=== PATIENT | male | born 1940 | race Caucasian/White ===

== ENCOUNTER 2022-06-23 11:37 | Emergency (ER) | payer MEDICARE, MEDICAID ==
[~2022-06-23] VITALS: Ht 182.9 cm; Wt 81.8 kg
[2022-06-23] MEDS ORDERED: AMIODARONE HCL (50 MG/ ML) 3 ML VIAL IV ONE ×2 (11:38)
[2022-06-23] MEDS ORDERED: MAGNESIUM SULF 50% 40 MEQ/10 ML VL IV ONE ×2 (11:38)
[2022-06-23] MEDS ORDERED: EPINEPHrine HCL 1 MG/10 ML SYRG IV ONE (11:38)
[2022-06-23] MEDS ORDERED: SODIUM BICARBONATE 8.4% INJ 50ML SYRINGE IV ONE ×2 (11:38)
[2022-06-23] MEDS ORDERED: ATROPINE SULF 1 MG/10ml SYR IM ONE (11:38)
[2022-06-23] MEDS ORDERED: SODIUM CHLORIDE 0.9% 500 ML IVB ONE (11:45)
[2022-06-23 12:25] LABS: Red Cell Distribution Width 13.5 % (11.8-14.3)
[2022-06-23 12:26] LABS: Hematocrit 45.5 % (41.0-53.0); Mean Corpuscular Hemoglobin 34.2 pg (28.0-32.0); Mean Corpuscular Hgb Conc. 33.1 g/dL (32.0-36.0); Mean Corpuscular Volume 103.3 fL (80.0-100.0)
[2022-06-23 12:31] LABS: White Blood Cell 30.1 10^3/uL (4.4-10.8)
[2022-06-23 12:32] LABS: Basophils % (manual) 0 (0.0-2.0); Blast Cells 0; Eosinophils % (manual) 0 (0-7); Myelocytes % 0; Promyelocytes % 0; Reactive Lymphocytes 0
[2022-06-23] MEDS ORDERED: SODIUM CHLORIDE 0.9% 2,450 ML IV ONE (12:45)
[2022-06-23] MEDS ORDERED: levoFLOXacin 500MG 100 ML IV ONE (12:45)
[2022-06-23 12:46] LABS: Lactic Acid w/Reflex 5.7 mmol/L (0.4-2.0)
[2022-06-23 12:47] LABS: Albumin 1.4 g/dL (3.4-5.0); Calcium 7.8 mg/dL (8.5-10.1); Magnesium 3.4 mg/dL (1.6-2.6)
[2022-06-23] MEDS ORDERED: DEXTROSE 50% SYRINGE 50 ML IV ONE ×2 (12:47→22:50)
[2022-06-23 12:48] LABS: INR 1.08 (0.9-1.15); Partial Thromboplastin Time 33.3 sec (24.6-33.4)
[2022-06-23 12:52] LABS: BUN/Creatinine Ratio 31.1; Bilirubin, Total 0.5 mg/dL (0.2-1.0); Total Protein 4.7 g/dL (6.4-8.2)
[2022-06-23] MEDS: PIPERACILLIN-TAZOB 3.375GM 100 ML IV ONE ×2 (12:55→15:48)
[2022-06-23 12:57] LABS: Potassium 2.9 mmol/L (3.5-5.1)
[2022-06-23] MEDS ORDERED: NOREPINEPHRINE 8 MG/250ML KIT 250 ML IV SCH (13:30)
[2022-06-23] MEDS ORDERED: NOREPINEPHRINE 8 MG/250ML KIT 250 ML IV ONE (13:36)
[2022-06-23] MEDS ORDERED: ONDANSETRON HCL 4 MG/2 ML VIAL IV PRN (14:00)
[2022-06-23] MEDS ORDERED: POTASSIUM CHL 20MEQ/100ML 100 ML IV ONE (14:00)
[2022-06-23] MEDS ORDERED: NITROGLYCERIN 0.4 MG SL TAB SL PRN (14:00)
[2022-06-23] MEDS ORDERED: HEPARIN SODIUM (PORCINE) 5000 UNITS/ML 1ML VIAL IV ONE (14:00)
[2022-06-23] MEDS ORDERED: MORPHINE SULFATE INJ 2 MG/ml SYRG IV PRN (14:00)
[2022-06-23 14:19] LABS: Band Neutrophils % (manual) 39; Lymphocytes % (manual) 8 (10.0-50.0); Metamyelocytes % 2; Monocytes % (manual) 7 (0-12)
[2022-06-23 14:53] LABS: Urine Bacteria NONE SEEN /hpf (None Seen); Urine Blood 3+ /uL (Negative); Urine Hyaline Cast FEW /lpf (0 - 2); Urine WBC 14 /hpf (0 - 3)
[2022-06-23 15:09] LABS: Alcohol, Urine < 3.0 mg/dL (0-10); Amphetamine Screen, Urine NEGATIVE (NEGATIVE); Barbiturate Scree,Urine NEGATIVE (NEGATIVE); Benzodiazephine Screen, Urine NEGATIVE (NEGATIVE); Cannabinoid Screen, Urine NEGATIVE (NEGATIVE); Cocaine Screen, Urine NEGATIVE (NEGATIVE); Opiate Scree,Urine NEGATIVE (NEGATIVE); Phencyclidine Screen, Urine NEGATIVE (NEGATIVE)
[2022-06-23] MEDS ORDERED: DEXTROSE (50%) 50ML SYRG IV PRN (15:45)
[2022-06-23 15:50] LABS: Hemoglobin 15.7 g/dL (13.5-17.5); Red Cell Distribution Width 13.4 % (11.8-14.3)
[2022-06-23 15:52] LABS: Hematocrit 45.9 % (41.0-53.0); Mean Corpuscular Hemoglobin 35.1 pg (28.0-32.0); Mean Corpuscular Hgb Conc. 34.2 g/dL (32.0-36.0); Mean Corpuscular Volume 102.6 fL (80.0-100.0); Red Blood Cells 4.47 10^6/uL (4.5-5.90)
[2022-06-23 16:07] LABS: White Blood Cell 34.1 10^3/uL (4.4-10.8)
[2022-06-23 16:08] LABS: Basophils % (manual) 0 (0.0-2.0); Blast Cells 0; Eosinophils % (manual) 0 (0-7); Myelocytes % 0; Promyelocytes % 0; Reactive Lymphocytes 0
[2022-06-23] MEDS ORDERED: SODIUM BICARBONATE 8.4 % INJ 50ML VIAL IV ONE (16:15)
[2022-06-23 16:27] LABS: Band Neutrophils % (manual) 78; Lymphocytes % (manual) 3 (10.0-50.0); Metamyelocytes % 3; Monocytes % (manual) 4 (0-12)
[2022-06-23] MEDS: HEPARIN DRIP/D5W 100UNITS/ML 250 ML IV SCH ×2 (16:59→19:03)
[2022-06-23] MEDS ORDERED: ACCU-CHEK COMFORT CURVE STRIP VI SCH (18:00)
[2022-06-23 19:52] LABS: BUN/Creatinine Ratio 32.9; Calcium 8.2 mg/dL (8.5-10.1); Potassium 3.4 mmol/L (3.5-5.1)
[2022-06-23] MEDS ORDERED: ETOMIDATE (2MG/ML) 20ML VIAL IV ONE ×2 (22:04→22:45)
[2022-06-23] MEDS ORDERED: SUCCINYLCHOLINE CHLORIDE 20 MG/ML 10ML VIAL IV ONE ×2 (22:05→22:45)
[2022-06-23] MEDS ORDERED: MIDAZOLAM HCL 10 ML IV ONE (22:05)
[2022-06-23] MEDS ORDERED: MIDAZOLAM DRIP 50 mg/50mL 50 ML IV ONE (22:13)
[2022-06-23] MEDS ORDERED: fentaNYL Drip 2500mCg/250mlNS 250 ML IV ONE (22:14)
[2022-06-23] MEDS ORDERED: MIDAZOLAM DRIP 50 mg/50mL 50 ML IV SCH (22:30)
[2022-06-23] MEDS ORDERED: fentaNYL Drip 2500mCg/250mlNS 250 ML IV SCH (22:30)
[2022-06-23 22:41] LABS: INR 1.27 (0.9-1.15)
[2022-06-23] MEDS ORDERED: SODIUM BICARBONATE 8.4% INJ 50ML SYRINGE ONE (22:51)
[2022-06-23 22:52] VITALS: BP 119/67
[2022-06-24] MEDS ORDERED: HEPARIN DRIP/D5W 100UNITS/ML 250 ML IV SCH
[2022-06-24] MEDS ORDERED: SODIUM BICARBONATE 8.4 % INJ 50ML VIAL IV ONE (03:00)
[2022-06-24] MEDS ORDERED: DEXTROSE (50%) 50ML SYRG IV ONE (03:00)
[2022-06-24] MEDS ORDERED: cefTRIAXone 1GM/50ML D5W 50 ML IV SCH (09:00)
[2022-06-24] MEDS ORDERED: PANTOPRAZOLE 40 MG/10 ML VIAL INJ IV SCH (10:00)
[2022-06-24] MEDS ORDERED: AZITHROMYCIN 500MG/ 250ML 250 ML IV SCH (10:00)
== END 2022-06-23 23:18 ==
LOC: ER 11:37 → EDBD 11:37 → UNDOADMIN 14:14 → TELE 14:14 → UNDODISIN 22:54 → ER 22:54
DX: I46.9 Cardiac arrest, cause unspecified (principal); E11.649 Type 2 diabetes mellitus with hypoglycemia without coma; I95.9 Hypotension, unspecified; R41.82 Altered mental status, unspecified; E87.6 Hypokalemia; Z98.890 Other specified postprocedural states
CPT/HCPCS: 31500; 36415; 36556; 36600; 70450; 71045; 72125; 72192; 80048; 80053; 80307; 80320; 81001; 82550; 82805; 82962; 83605; 83735; 84484; 85007; 85027; 85610; 85730; 87040; 87070; 87077; 87086; 87088; 87186; 87205; 92950; 93005; 96361; 96365; 96366; 96367; 96368; 96375; 96376; 99291; J0171; J0282; J0330; J1644; J1956; J2250; J2543; J3475; J3480; J7030; J7042; 94002; G0378